=== PATIENT | male | born 1985 | race Hispanic/Latino ===

== ENCOUNTER 2023-12-06 12:52 | Inpatient (IN) | payer SELFPAY ==
[2023-12-06] MEDS ORDERED: NA CHLORIDE 0.9% 1,000 ML ONE ×2 (13:31→16:58)
[2023-12-06] MEDS ORDERED: ONDANSETRON 4 MG/2 ML VIAL ONE (13:31)
[2023-12-06] MEDS ORDERED: MORPHINE 4 MG/ML SYR ONE (13:31)
[2023-12-06 13:43] LABS: Absolute Lymphocytes (CBC) 3.8 K/uL (0.7-4.9); Hematocrit 45.8 % (39.6-49.0); Lymphocytes % 20.6 % (15.3-44.8); MCV 88.1 fL (80-100); MPV 6.5 fL (7.6-11.3); Platelets 433 thou/uL (152-406)
--- NOTE | 2023-12-06 13:56 | RAD REPORT ---
EXAM DESCRIPTION: US - Abdomen Exam Limited - 12/06/2023 1:44 pm CLINICAL HISTORY: ABD PAIN COMPARISON: Abdomen Pelvis W Contrast dated 12/06/2023 FINDINGS: The gallbladder demonstrates several shadowing gallstones. Mildly thickened measuring up t o 3 mm. The common bile duct is normal measuring 4-5 mm.. The liver demonstrates no findings of intrahepatic biliary dilatation. IMPRESSION: Cholelithiasis with findings suspicious for early cholecystitis.
--- NOTE | 2023-12-06 13:58 | RAD REPORT ---
EXAM DESCRIPTION: CTAbdomen Pelvis W Contrast - 12/06/2023 1:51 pm CLINICAL HISTORY: Abdominal pain. ABD PAIN COMPARISON: <Comparisons> TECHNIQUE: Biphasic CT imaging of the abdomen and pelvis was performed with 100 ml non-ionic IV cont rast. All CT scans are performed using dose optimization technique as appropriate and may include automated exposure control or mA/KV adjustment according to patient size. FINDINGS: The lung bases are clear. The liver demonstrates fatty infiltration. The fluid and gallbladder wall thickening suggests acute c holecystitis. Spleen, pancreas, right adrenal gland and kidneys are within normal limits. 21 mm left adrenal mass is nonspecific but favored to represent benign adenoma. No bowel obstruction, free air, free fluid or abscess. Diverticulosis coli is present without diverti culitis. The appendix is normal. No evidence of significant lymphadenopathy. No suspicious bony findings. IMPRESSION: Cholelithiasis with findings suspicious for acute cholecystitis.
[2023-12-06 14:12] LABS: Bilirubin Total 0.8 mg/dL (0.2-1.0); Potassium 3.2 mEq/L (3.5-5.1); Protein, Total 8.4 g/dL (6.4-8.2)
--- NOTE | 2023-12-06 14:29 | EDPHYS ---
Physician Documentation [facility] Name: Vito Brizuela Age: 38 yrs Sex: Male : 1985 Arrival Date: 12/06/2023 Time: 12:52 Bed 19 Private MD: ED Physician Rigoberto Jean HPI: 12/06 13:17 This 38 yrs old Male presents to ER via Ambulatory with complaints of sb4 Abdominal Pain, Vomiting. 13:17 The patient presents with abdominal pain in the right upper quadrant. Onset: The sb4 symptoms/episode began/occurred 1 month(s) ago, and became worse today. The symptoms do not radiate. Associated signs and symptoms: Pertinent positives: nausea and vomiting, Pertinent negatives: fever. Modifying factors: The symptoms are alleviated by nothing, the symptoms are aggravated by food. The patient has not experienced similar symptoms in the past. The patient has not recently seen a physician. Historical: - Allergies: 13:15 No Known Allergies; cm10 - Home Meds: 13:15 None [Active]; cm10 - PMHx: 13:15 None; cm10 - PSHx: 13:15 None; cm10 - Immunization history:: Adult Immunizations up to date. - Social history:: Smoking status: Patient reports the use of cigarette tobacco products, denies chronic smoking, but will smoke occasionally. ROS: 13:17 Constitutional: Negative for fever, chills, and weight loss, sb4 13:17 Abdomen/GI: Positive for abdominal pain, nausea and vomiting, 13:17 All other systems are negative, Exam: 13:17 Head/Face: Normocephalic, atraumatic. Eyes: Extra-ocular motions intact. Periorbital sb4 areas with no swelling, redness, or edema. ENT: Mucous membranes moist. Cardiovascular: Regular rate and rhythm with a normal S1 and S2. Respiratory: Lungs have equal breath sounds bilaterally, clear to auscultation and percussion. No rales, rhonchi or wheezes noted. No increased work of breathing, no retractions or nasal flaring. Skin: Warm, dry with normal turgor. Normal color with no rashes, no lesions, and no evidence of cellulitis. MS/ Extremity: Pulses equal, no cyanosis. Neurovascular intact. Full, normal range of motion. Neuro: Awake and alert, GCS 15, oriented to person, place, time, and situation. Motor strength 5/5 in all extremities. Sensory grossly intact. 13:17 Constitutional: The patient appears alert, awake, in obvious pain, uncomfortable, 13:17 Abdomen/GI: Inspection: abdomen appears normal, Bowel sounds: normal, Palpation: soft, moderate abdominal tenderness, in the right upper quadrant, involuntary guarding, is elicited in the right upper quadrant, 14:02 Abdomen/GI: Indicators: Castro's sign is positive, sb4 Vital Signs: 13:13 BP 146 / 106; Pulse 86; Resp 18 S; Temp 97.3; Pulse Ox 98% on R/A; Weight 86.18 kg; cm10 Height 5 ft. 3 in. ; Pain 8/10; 14:30 BP 146 / 95; Pulse 79; Resp 18; Pulse Ox 99% on R/A; cm10 13:13 Body Mass Index 33.66 (86.18 kg, 160.02 cm) cm10 13:13 Pain Scale: Adult cm10 MDM: 13:00 Patient medically screened. sb4 13:17 Differential diagnosis: cholecystitis, Cholelithiasis, gastritis, Hepatitis, sb4 non-specific abd pain, pancreatitis. 14:28 Data reviewed: vital signs, nurses notes, lab test result(s), radiologic studies, and sb4 as a result, I will admit patient. Consideration of Admission/Observation Patient was admitted/placed on observation. Management of patient was discussed with the following: Production Cook: gen surgery, dr brantley, accepts patient for admission. Counseling: I had a detailed discussion with the patient and/or guardian regarding the historical points, exam findings, and any diagnostic results supporting the discharge/admit diagnosis, lab results, radiology results, the need for further work-up and treatment in the hospital. 12/06 13:17 Order name: CBC with Diff; Complete Time: 13:43 sb4 12/06 13:17 Order name: CMP; Complete Time: 14:15 sb4 12/06 13:17 Order name: Lipase; Complete Time: 14:15 sb4 12/06 13:17 Order name: Urinalysis w/ reflexes sb4 12/06 13:17 Order name: Blood Culture Adult (2) sb4 12/06 13:17 Order name: Lactate w/ 2H reflex if indic.; Complete Time: 14:00 sb4 12/06 13:17 Order name: Abdomen Limited US; Complete Time: 13:57 sb4 12/06 13:17 Order name: CT Abd/Pelvis - IV Contrast Only; Complete Time: 14:00 sb4 12/06 13:17 Order name: IV Saline Lock; Complete Time: 13:29 sb4 12/06 13:17 Order name: Labs collected and sent; Complete Time: 13:29 sb4 Administered Medications: 13:36 Drug: NS 0.9% IV 1000 ml IV at 1 bolus Per protocol; 1000 mL bolus Route: IV; Rate: 1 cm10 bolus; Site: right antecubital; 15:39 Follow up: Response: No adverse reaction; IV Status: Completed infusion; IV Intake: cm10 1000ml 13:36 Drug: Ondansetron IVP 4 mg IVP once; over 2 minutes Route: IVP; Site: right antecubital;cm10 14:49 Follow up: Response: No adverse reaction cm10 13:36 Drug: morphine IVP or IV 4 mg IVP once over 4 mins Route: IVP; Infused Over: 4 mins; cm10 Site: right antecubital; 14:49 Follow up: Response: No adverse reaction; Pain is decreased cm10 14:54 Drug: Piperacillin-Tazobactam IVPB 3.375 grams IVPB once over 60 mins; (mix in NS 100 cm10 mL) Route: IVPB; Infused Over: 60 mins; Site: right antecubital; 15:39 Follow up: Response: No adverse reaction; IV Status: Completed infusion; IV Intake: cm10 100ml 14:54 Drug: Potassium Chloride IV 20 mEq IV at calculated rate once; administer over 1-2 cm10 hours Route: IV; Rate: calculated rate; Site: right antecubital; Disposition: 16:29 Co-signature as Attending Physician, Rigoberto Jean MD I reviewed the patient's care rt provided by the Advanced Practice Provider and agree with the diagnosis and treatment plan. Disposition Summary: 12/06/23 14:29 Hospitalization Ordered Notes: Hospitalization Status: Inpatient Admission sb4 Provider: Jaren Brantley Location: Telemetry/[facility] (Inpatient) sb4 Condition: Fair sb4 Problem: new sb4 Symptoms: are unchanged sb4 Bed/Room Type: Standard sb4 Room Assignment: 225(12/06/23 15:07) bd Diagnosis - Acute cholecystitis sb4 Forms: - Medication Reconciliation Form sb4 - SBAR form sb4 - Leadership Thank You Letter sb4 Signatures: Dispatcher [employer] EDMS Alona Martinez La Nena Yi PA-C PA-C sb4 Rigoberto Jean MD MD rt My Malave RN RN cm10 Corrections: (The following items were deleted from the chart) 14:02 13:17 Head/Face: Normocephalic, atraumatic. Eyes: Extra-ocular motions intact. sb4 Periorbital areas with no swelling, redness, or edema. ENT: Mucous membranes moist. Cardiovascular: Regular rate and rhythm with a normal S1 and S2. Respiratory: Lungs have equal breath sounds bilaterally, clear to auscultation and percussion. No rales, rhonchi or wheezes noted. No increased work of breathing, no retractions or nasal flaring. Skin: Warm, dry with normal turgor. Normal color with no rashes, no lesions, and no evidence of cellulitis. MS/ Extremity: Pulses equal, no cyanosis. Neurovascular intact. Full, normal range of motion. Neuro: Awake and alert, GCS 15, oriented to person, place, time, and situation. Motor strength 5/5 in all extremities. Sensory grossly intact. sb4 14:39 14:29 sb4 bd 15:07 14:39 223 bd bd
--- NOTE | 2023-12-06 14:29 | ER ---
Nurse's Notes [facility] Name: Vito Brizuela Age: 38 yrs Sex: Male : 1985 Arrival Date: 12/06/2023 Time: 12:52 Bed 19 Private MD: Diagnosis: Acute cholecystitis Presentation: 12/06 13:13 Chief complaint: Patient states: RUQ abdominal pain onset 1 month ago. Pt states that cm10 after eating he has been vomiting. Coronavirus screen: Vaccine status: Patient reports receiving the 2nd dose of the covid vaccine. Client denies travel out of the [place] in the last 14 days. Ebola Screen: Patient denies travel to an Ebola-affected area in the 21 days before illness onset. No symptoms or risks identified at this time. Initial Sepsis Screen: Does the patient meet any 2 criteria? No. Patient's initial sepsis screen is negative. Does the patient have a suspected source of infection? No. Patient's initial sepsis screen is negative. Risk Assessment: Do you want to hurt yourself or someone else? Patient reports no desire to harm self or others. Onset of symptoms was December 06, 2023. 13:13 Method Of Arrival: Ambulatory cm10 13:13 Acuity: KAROL 3 cm10 Triage Assessment: 13:15 General: Appears in no apparent distress. uncomfortable, Behavior is calm, cooperative. cm10 Pain: Complains of pain in right upper quadrant. Neuro: No deficits noted. Level of Consciousness is awake, alert, Oriented to person, place, time, situation, Appropriate for age. Cardiovascular: No deficits noted. Patient's skin is warm and dry. Respiratory: No deficits noted. Airway is patent Respiratory effort is even, unlabored, Respiratory pattern is regular, symmetrical. GI: Abdomen is tender to palpation in right upper quadrant Reports upper abdominal pain, nausea, vomiting. : No deficits noted. No signs and/or symptoms were reported regarding the genitourinary system. Derm: No deficits noted. No signs and/or symptoms reported regarding the dermatologic system. Musculoskeletal: No deficits noted. No signs and/or symptoms reported regarding the musculoskeletal system. Range of motion: intact in all extremities. Historical: - Allergies: 13:15 No Known Allergies; cm10 - Home Meds: 13:15 None [Active]; cm10 - PMHx: 13:15 None; cm10 - PSHx: 13:15 None; cm10 - Immunization history:: Adult Immunizations up to date. - Social history:: Smoking status: Patient reports the use of cigarette tobacco products, denies chronic smoking, but will smoke occasionally. Screenin:16 [facility] ED Fall Risk Assessment (Adult) History of falling in the last 3 months, cm10 including since admission No falls in past 3 months (0 pts) Confusion or Disorientation No (0 pts) Intoxicated or Sedated No (0 pts) Impaired Gait No (0 pts) Mobility Assist Device Used No (0 pt) Altered Elimination No (0 pt) Score/Fall Risk Level 0 - 2 = Low Risk Oriented to surroundings, Maintained a safe environment, Hourly rounding (assess needs \T\ fall precautionary measures) done. Abuse screen: Denies threats or abuse. Denies injuries from another. Nutritional screening: No deficits noted. Tuberculosis screening: No symptoms or risk factors identified. Assessment: 14:50 Reassessment: Attempted to call report. No answer. cm10 15:42 Reassessment: Patient and/or family updated on plan of care and expected duration. Pain cm10 level reassessed. Patient is alert, oriented x 3, equal unlabored respirations, skin warm/dry/pink. Patient states feeling better. Patient states symptoms have improved. 15:44 GI: Bowel sounds present X 4 quads. cm10 Vital Signs: 13:13 BP 146 / 106; Pulse 86; Resp 18 S; Temp 97.3; Pulse Ox 98% on R/A; Weight 86.18 kg; cm10 Height 5 ft. 3 in. ; Pain 8/10; 14:30 BP 146 / 95; Pulse 79; Resp 18; Pulse Ox 99% on R/A; cm10 13:13 Body Mass Index 33.66 (86.18 kg, 160.02 cm) cm10 13:13 Pain Scale: Adult cm10 ED Course: 12:56 Patient arrived in ED. mg5 12:58 La Nena Polanco PA-C is PHCP. sb4 12:58 Rigoberto Jean MD is Attending Physician. sb4 13:13 My Malave, TAWNY is Primary Nurse. cm10 13:15 Triage completed. cm10 13:15 Arm band placed on Patient placed in an exam room, on a stretcher. cm10 13:16 Patient has correct armband on for positive identification. Placed in gown. Bed in low cm10 position. Call light in reach. Side rails up X2. Provided Education on: ER process and procedures.. 13:26 Initial lab(s) drawn, by me, sent to lab. First set of blood cultures drawn by me. cm10 13:29 Lactate w/ 2H reflex if indic. Sent. cm10 13:29 CBC with Diff Sent. cm10 13:29 CMP Sent. cm10 13:29 Lipase Sent. cm10 13:29 Inserted saline lock: 20 gauge in right antecubital area, using aseptic technique. cm10 Blood collected. 13:36 Patient taken to ultrasound. via wheelchair. cm10 13:46 Abdomen Limited US In Process Unspecified. EDMS 13:53 CT Abd/Pelvis - IV Contrast Only In Process Unspecified. EDMS 14:28 Jaren Peraza MD is Hospitalizing Provider. sb4 14:28 Second set of blood cultures drawn by me. cm10 15:44 No provider procedures requiring assistance completed. Patient admitted, IV remains in cm10 place. Administered Medications: 13:36 Drug: NS 0.9% IV 1000 ml IV at 1 bolus Per protocol; 1000 mL bolus Route: IV; Rate: 1 cm10 bolus; Site: right antecubital; 15:39 Follow up: Response: No adverse reaction; IV Status: Completed infusion; IV Intake: cm10 1000ml 13:36 Drug: Ondansetron IVP 4 mg IVP once; over 2 minutes Route: IVP; Site: right antecubital;cm10 14:49 Follow up: Response: No adverse reaction cm10 13:36 Drug: morphine IVP or IV 4 mg IVP once over 4 mins Route: IVP; Infused Over: 4 mins; cm10 Site: right antecubital; 14:49 Follow up: Response: No adverse reaction; Pain is decreased cm10 14:54 Drug: Piperacillin-Tazobactam IVPB 3.375 grams IVPB once over 60 mins; (mix in NS 100 cm10 mL) Route: IVPB; Infused Over: 60 mins; Site: right antecubital; 15:39 Follow up: Response: No adverse reaction; IV Status: Completed infusion; IV Intake: cm10 100ml 14:54 Drug: Potassium Chloride IV 20 mEq IV at calculated rate once; administer over 1-2 cm10 hours Route: IV; Rate: calculated rate; Site: right antecubital; Medication: 13:16 VIS not applicable for this client. cm10 Intake: 15:39 IV: 1000ml; Total: 1000ml. cm10 15:39 IV: 100ml; Total: 1100ml. cm10 Outcome: 14:29 Decision to Hospitalize by Provider. sb4 15:42 Admitted to Med/surg accompanied by tech, via wheelchair, room 225, Report called to elly Webber RN 15:42 Condition: good 15:42 Instructed on the need for admit, 15:55 Patient left the ED. cm10 Signatures: Dispatcher [employer] EDLa Nena Erickson PA-C PA-C sb4 Martinez, Clarissa, RN RN Mariella Light mg5
[2023-12-06] MEDS ORDERED: KCL 20 MEQ/100 mL IVPB 100 ML IV ONE (14:32)
[2023-12-06] MEDS ORDERED: NA CHLORIDE 0.9% 100 ML ONE (14:32)
[2023-12-06] MEDS ORDERED: PIPERACIL/TAZO 3.375 GM VIAL IV ONE (14:32)
--- NOTE | 2023-12-06 16:00 | PREOPHP ---
Date of Admission: 12/06/2023 Reason: Abdominal pain. History Of Present Illness: The patient is a 38-year-old gentleman comes in with a 6-week history of intermittent biliary colic with the most recent episode being persistent for about a week now, postp randial in nature after fatty food, fried food, and spicy food. The pain is in the epigastric region and right upper quadrant, does not radiate to the back. The patient has bloating, belching, and hea rtburn associated with it as well. The patient denies any sore throat, runny nose, cough, headaches, dizziness. No chest pain. No fever or chills. No diarrhea, constipation, blood in his stool. No dysuria, hematuria. Review of Systems: Otherwise unremarkable. Past Medical History: Negative. Past Surgical History: Negative. Allergies: NO ALLERGIES. Social History: The patient does smoke and drink occasionally, was counseled. Family History: Significant for diabetes. Physical Examination: Vital signs: Stable. He is currently afebrile. General: He is awake, alert, oriented x3. Head and neck: Cranial nerves 2 through 12 are grossly within normal limits. No neck masses. No JV D. Throat clear. Neck is supple. Chest: Clear. Heart: S1 and S2. Abdomen: Soft, nondistended. Positive bowel sounds. Positive right upper quadrant tenderness with minimal rebound. No rigidity or guarding. No Castro sign at this time. Extremities: Adequately perfused, nontender. Neuro: Nonfocal. Laboratory Data: [place] [address] with a left shift. LFTs reviewed. AST and ALT are within nor mal limits as is total bilirubin and direct bilirubin. However, the alkaline phosphatase is slightly elevated. Lipase is within normal limits. Ultrasound and CT of the abdomen reviewed. Findings are consistent with acute cholecystitis and cholelithiasis. Assessment: Cholelithiasis and cholecystitis, acute. Recommendation: Admit. N.p.o. after midnight. IV fluids, IV antibiotics. Replace potassium and th en to the OR for laparoscopic cholecystectomy, possible open. The patient understands risks, benefit s, and alternatives and agrees to procedure. /MODL Voice ID: [id number]
[2023-12-06] MEDS ORDERED: MORPHINE 4 MG/ML SYR IV PRN (16:51)
[2023-12-06] MEDS ORDERED: ONDANSETRON 4 MG/2 ML VIAL IV PRN (16:51)
[2023-12-06] MEDS: NA CHLORIDE 0.9% 1,000 ML IV SCH (16:51)
[2023-12-06] MEDS: PIPER TAZO 3.375 GM in NA CHLORIDE 0.9% 100 ML IV SCH (17:00)
[2023-12-06 17:34] VITALS: BMI 33.6
[2023-12-06 21:59] LABS: Urine Bacteria None Seen /HPF (<20); Urine Bilirubin NEGATIVE (Negative); Urine Blood Negative (Negative); Urine Clarity Clear (Clear); Urine Color Yellow (Yellow); Urine Glucose NEGATIVE (Negative); Urine Mucus 2+ /HPF (None Seen); Urine Protein TRACE (Negative); Urine RBC <5 /HPF (None Seen); Urine Urobilinogen Normal (Normal)
[2023-12-07] MEDS: PIPER TAZO 3.375 GM in NA CHLORIDE 0.9% 100 ML IV SCH ×3 (00:34→16:07)
[2023-12-07] MEDS: NA CHLORIDE 0.9% 1,000 ML IV SCH ×2 (02:51→14:27)
[2023-12-07] MEDS ORDERED: Ringers Lactate 1,000 ML IV ONE (06:44)
[2023-12-07] MEDS: BUPIVACAINE 0.5% PF 10 ML VIAL ONE ×2 (07:41→07:55)
[2023-12-07] MEDS: HYDROMORPHONE HCL 1 MG/ML INJ ONE ×2 (09:20→09:25)
[2023-12-07] MEDS ORDERED: HYDROMORPHONE HCL 1 MG/ML INJ ONE (09:33)
--- NOTE | 2023-12-07 09:50 | OP ---
Date of Procedure: 12/07/2023 Surgeon: Jaren Peraza MD Process Engineering Manager: EREN Burton. Preoperative Diagnoses: Acute cholecystitis and cholelithiasis. Postoperative Diagnosis: Acute cholecystitis and cholelithiasis. Procedure: Laparoscopic cholecystectomy Estimated Blood Loss: Minimal. Specimen: Gallbladder. Findings: As above. Anesthesia: General. Complication: None. Dispostion: The patient tolerated the procedure, in stable condition, taken to the recovery room in good general condition. Description Of Procedure: The patient brought to the OR and placed in supine position. General anes thesia began. Patient prepped and draped in the usual sterile fashion. Marcaine 0.5% infiltrated lo hayden. A 15 blade used to make a 1 cm supraumbilical incision. Subcutaneous tissue divided. Fascia identified and divided. #1 Vicryl stay suture placed. Peritoneal cavity entered with sharp and darrian nt dissection. A 12 mm trocar placed into the peritoneal cavity under direct vision. Pneumoperitone um established and then three 5 mm trocars placed, one in the epigastric region just to the right of midline, two in the right subcostal region. Laparoscopy revealed a distended gallbladder, which was aspirated of bile to allow for better retraction and then fundus retracted superiorly. Infundibulum identified, retracted inferolaterally. Findings were consistent with acute cholecystitis. Cystic du ct and cystic artery identified with sharp and blunt dissection. Bleeding controlled with cautery. Clips placed. Both structures divided. Cautery used to remove the gallbladder from the liver bed. Bleeding on the liver controlled with cautery. Gallbladder retrieved through the umbilicus via EndoC atch bag. Right upper quadrant irrigated. Effluent clear. No evidence of bleeding or bile leakage appreciated. The umbilical fascial incision had to be extended to remove the larger than usual gallb ladder that was present. Subsequently, all trocars removed under direct vision. #1 Vicryl used to c lose the fascial defect. Subcutaneous wound was irrigated and bleeding controlled with cautery. 0 c hromic used to approximate subcutaneous tissue and mich used to close skin. Sterile dressing appl ied. Patient awakened, taken to recovery room in good general condition. /MODL Voice ID: [id number] Report ID: [id number]
[2023-12-07] MEDS: HYDROCODONE/APAP 7.5/325 MG TAB PO PRN ×2 (10:22→22:46)
[2023-12-07] MEDS: HYDROMORPHONE HCL 1 MG/ML INJ IV PRN ×2 (14:28→20:28)
[2023-12-08] MEDS: PIPER TAZO 3.375 GM in NA CHLORIDE 0.9% 100 ML IV SCH ×2 (01:14→09:24)
[2023-12-08] MEDS: NA CHLORIDE 0.9% 1,000 ML IV SCH (05:59)
[2023-12-08] MEDS: HYDROMORPHONE HCL 1 MG/ML INJ IV PRN ×2 (05:59→09:23)
[2023-12-08 07:47] LABS: Absolute Lymphocytes (CBC) 4.2 K/uL (0.7-4.9); Hematocrit 39.8 % (39.6-49.0); Lymphocytes % 25.4 % (15.3-44.8); MCV 89.1 fL (80-100); MPV 6.6 fL (7.6-11.3); Platelets 394 thou/uL (152-406); RBC Red Blood Cell Count 4.47 M/uL (4.33-5.43)
[2023-12-08 08:35] VITALS: BP 121/91; TEMP 97.4
--- NOTE | 2023-12-08 10:06 | DS ---
Date of Discharge: 12/08/2023 Admitting Diagnoses: Acute cholecystitis and cholelithiasis. Discharge Diagnoses: Acute cholecystitis and cholelithiasis. Procedure Performed: Laparoscopic cholecystectomy. Hospital Course: Patient is a 38-year-old gentleman who was admitted with abdominal pain and leukocy tosis. Workup revealed acute cholecystitis and cholelithiasis. Patient was taken to surgery yesterd ay, underwent uneventful laparoscopic cholecystectomy. He did have acute cholecystitis clinically an d findings during surgery. Patient today is tolerating diet, ambulating, pain controlled with p.o. p ain medication, afebrile. He still has leukocytosis, therefore patient will be discharged home on an tibiotics. Disposition: Home. Condition: Stable. Discharge Instructions: Resume home meds and diet. Activities as tolerated. No heavy lifting. Rem ove outer dressing in a.m. Shower, keep wound clean and dry. Dry gauze and Band-Aid to wound daily. Follow up in my office in 1 week. Call for appointment. Cipro 500, [place] 7.5, and Colace prescrip tion called into patient's pharmacy. EBEN/MARYCHUY Voice ID: [id number] Report ID: [id number]
[2023-12-08 10:08] VITALS: O2SAT 96
== END 2023-12-08 10:40 | disposition home or self-care (01) | DRG 419 ==
LOC: EDBD 12:52 → ER 12:52 → 2ND 15:26
PROVIDERS: ADMIT Surgery; ATTEND Surgery
PROC: 0FT44ZZ Resection of Gallbladder, Percutaneous Endoscopic Approach (ICD-10-PCS; principal; 2023-12-07 07:30)
DX: K80.00 Calculus of gallbladder with acute cholecystitis without obstruction (principal); F17.210 Nicotine dependence, cigarettes, uncomplicated; Z71.6 Tobacco abuse counseling
CPT/HCPCS: 36415; 74177; 76705; 80053; 81001; 83605; 83690; 85025; 87040; 88304; 94010; 96361; 96365; 96375; 99285; J1170; J2405; J2543; J3480; J7030; J7120; Q9967